=== PATIENT | female | born 1985 | race Caucasian/White ===

== ENCOUNTER → 2020-02-28 | Outpatient (CLI) | payer OTHER ==
[~2020-02-28] MED LIST: PROHANCE 279.3MG/ML 15ML VIAL As Ordered ONE
--- NOTE | 2020-02-28 16:59 | REP ---
INDICATION: Z12.39 BREAST SCREENING H/O BREAST CA DENSITIES. COMPARISON: None. TECHNIQUE: Three [place] MRI imaging was performed with a dedicated breast coil. Axial, coronal, and sagittal T1 and T2 weighted scans were obtained with and without fat saturation in the usual fashion. The study includes dynamically acquired post gadolinium-enhanced imaging with image subtraction. Maximum intensity projection and multi planar reformation imaging is included as well. This study is interpreted with the aid of [employer], an FDA approved computer aided detection (CAD) software program, on a dedicated breast MRI workstation. The gadolinium enhancement dose is 10 mL of intravenous ProHance. FINDINGS: There is an extreme pattern of parenchymal tissue throughout both breasts. A subcentimeter cyst is seen in the upper outer quadrant of the right breast posteriorly. A subcentimeter cyst is also seen in the lower outer quadrant of the left breast posteriorly. No axillary adenopathy is seen bilaterally. There is mild background parenchymal enhancement bilaterally. There is no suspicious enhancing mass or morphologic abnormality. IMPRESSION: BI-RADS category 2, benign bilateral breast MRI. Small cyst is seen in each breast. No suspicious enhancing mass or morphologic abnormality. <Electronically signed by Danial Stallings > 02/28/20 [id number]
== END ==
LOC: M RAD 14:47
PROVIDERS: ATTEND Physician Assistant
DX: Z12.39 Encounter for other screening for malignant neoplasm of breast (principal); N60.01 Solitary cyst of right breast; N60.02 Solitary cyst of left breast
CPT/HCPCS: A9576; C8908

== ENCOUNTER → 2021-07-08 | Outpatient (CLI) | payer OTHER ==
[2021-07-08 16:36] LABS: BLOOD UREA NITROGEN 12 MG/DL (7-18); CREATININE FOR GFR 0.81 MG/DL (0.55-1.30); GLOMERULAR FILTRATION RATE > 60.0 (>60)
== END ==
LOC: M LAB 15:30
PROVIDERS: ATTEND Internal Medicine Hematology & Oncology
DX: Z01.818 Encounter for other preprocedural examination (principal)

== ENCOUNTER → 2021-07-09 | Outpatient (CLI) | payer OTHER ==
[~2021-07-09] MED LIST changes: -PROHANCE 279.3MG/ML 15ML VIAL As Ordered ONE; +PROHANCE 279.3MG/ML 5ML VIAL As Ordered ONE
== END ==
LOC: M RAD 12:51
PROVIDERS: ATTEND Internal Medicine Hematology & Oncology
DX: R92.8 Other abnormal and inconclusive findings on diagnostic imaging of breast (principal); Z80.3 Family history of malignant neoplasm of breast

== ENCOUNTER → 2022-07-17 | Outpatient (CLI) | payer OTHER ==
[~2022-07-17] MED LIST changes: +PROHANCE 279.3MG/ML 15ML VIAL As Ordered ONE; -PROHANCE 279.3MG/ML 5ML VIAL As Ordered ONE
== END ==
LOC: M RAD 12:47
PROVIDERS: ATTEND Internal Medicine Hematology & Oncology
DX: R92.8 Other abnormal and inconclusive findings on diagnostic imaging of breast (principal); Z80.3 Family history of malignant neoplasm of breast